=== PATIENT | female | born 1955 | race Caucasian/White ===

== ENCOUNTER 2016-09-15 15:13 | Emergency (ER) | payer OTHER ==
[~2016-09-15] VITALS: Ht 175.3 cm; Wt 90.0 kg
[~2016-09-15 15:13] MED LIST: ASPIRIN325 MG PO; BENGAY VANISHIN57 GM TP; BENZTROPINE MESY1 MG PO; CALCIUM + VITA1 EACH PO; DEBROX15 ML OT; DEPAKOTE250 MG PO; DEPAKOTE500 MG PO; DICYCLOMINE HCL10 MG PO; DILANTIN100 MG PO; FLORINEF ACETA0.1 MG PO; GAS RELIEF 8080 MG PO; HYDROCORTISONE30 G2 TP; IBUPROFEN600 MG PO; LACTAID9000 UNIT PO; LEVOTHYROXINE50 MCG PO; LITHIUM CARBON300 MG PO; LYRICA75 MG PO; Lactaid PO; MAALOX SUSPENS148 ML PO; MIRALAX17 GM PO; MOTRIN600 MG PO; NOSE SPRAY30 ML NS; OLANZAPINE5 M1 PO; Oyst-Cal D, Oscal W/ PO; PERCOCET 5/31 TABLET PO; PROAMATINE10 MG PO; PROLIXIN2.5 MG/ML IM; PROTONIX40 MG PO; SENNA8.6 MG PO; SEROQUEL100 MG PO; SEROQUEL200 MG PO; SIMVASTATIN40 MG PO; SODIUM CHLORIDE1 G1 PO; THERAGRAN1 TABLET PO; TYLENOL EXTRA500 MG PO; TYLENOL REGULA325 MG PO; VENTOLIN HFA18 GM IH; ZYPREXA2.5 MG PO; ZYPREXA7.5 MG PO; [UNRECOGNIZED DRUG - OTHER] IM
[2016-09-15 16:57] LABS: HEMATOCRIT 36.5 % (36.0-46.0); MCH 31.7 PG (29.0-34.0); MCHC 32.3 G/DL (30.0-36.0); MCV 98.1 FL (83-99); MEAN PLAT.VOLUME 11.3 uM^3 (9.5-12.4); PLATELET COUNT 107 K/uL (156-360); RBC DIS.WIDTH-SD 48.2 % (39-53); RED BLOOD COUNT 3.72 M/uL (3.80-5.20); WHITE BLOOD COUNT 5.7 K/uL (4.1-10.2)
[2016-09-15 17:04] LABS: CHLORIDE 104 mEq/L (99-109); POTASSIUM 4.4 mEq/L (3.7-5.4); SODIUM 142 mEq/L (136-147)
[2016-09-15 17:06] LABS: GLUCOSE 103 mg/dL (70-99)
[2016-09-15 17:08] LABS: ANION GAP 6 MEQ/L (2-14)
[2016-09-15 17:10] LABS: GFR ESTIMATE (CALCULATED) > 59 mL/min/
[2016-09-15 17:11] LABS: UREA NITROGEN (BUN) 22 mg/dL (9-23)
[2016-09-15] MEDS ORDERED: PERCOCET 5/31 TABLET PO (18:39)
[2016-09-15 20:09] VITALS: BP 99/71
[2016-09-16] MEDS ORDERED: ADVAIR HFA120 INHALA IH (19:40)
[2016-09-16] MEDS ORDERED: MIDODRINE HCL10 MG PO (19:42)
[2016-09-16] MEDS ORDERED: DEPAKENE250 MG/5 M PO ×2 (19:42→19:43)
[2016-09-16] MEDS ORDERED: ATIVAN0.5 MG PO (19:44)
[2016-09-16] MEDS ORDERED: BENGAY VANISHIN57 GM TP (19:45)
[2016-09-16] MEDS ORDERED: DUONEB 2.5-0.5 M3 ML AEROSOL (19:47)
== END 2016-09-15 20:14 ==
LOC: EME → EDBD 15:13 → EME 20:14
PROVIDERS: Emergency Medicine
DX: S02.612A Fracture of condylar process of left mandible, initial encounter for closed fracture (principal); S01.81XA Laceration without foreign body of other part of head, initial encounter; S00.31XA Abrasion of nose, initial encounter; S80.211A Abrasion, right knee, initial encounter; S80.212A Abrasion, left knee, initial encounter; W01.0XXA Fall on same level from slipping, tripping and stumbling without subsequent striking against object, initial encounter; Y93.01 Activity, walking, marching and hiking; Y92.199 Unspecified place in other specified residential institution as the place of occurrence of the external cause; G89.29 Other chronic pain; Z79.891 Long term (current) use of opiate analgesic; Z79.82 Long term (current) use of aspirin; Z87.891 Personal history of nicotine dependence
CPT/HCPCS: 70450; 70486; 80048; 85027; 99281; 99285

== ENCOUNTER 2016-09-16 16:18 | Emergency (ER) | payer OTHER ==
[~2016-09-16] VITALS: Ht 172.7 cm; Wt 88.2 kg
[2016-09-16 17:28] LABS: HEMATOCRIT 42.3 % (36.0-46.0); MCH 32.1 PG (29.0-34.0); MCHC 32.9 G/DL (30.0-36.0); MCV 97.7 FL (83-99); MEAN PLAT.VOLUME 11.2 uM^3 (9.5-12.4); PLATELET COUNT 101 K/uL (156-360); RBC DIS.WIDTH-CV 14.1 % (11.8-14.6); RBC DIS.WIDTH-SD 48.4 % (39-53); RED BLOOD COUNT 4.33 M/uL (3.80-5.20)
[2016-09-16 17:35] LABS: CHLORIDE 101 mEq/L (99-109); SODIUM 141 mEq/L (136-147)
[2016-09-16 17:37] LABS: GLUCOSE 126 mg/dL (70-99)
[2016-09-16 17:38] LABS: ANION GAP 10 MEQ/L (2-14)
[2016-09-16 17:41] LABS: GFR ESTIMATE (CALCULATED) > 59 mL/min/
[2016-09-16 17:42] LABS: UREA NITROGEN (BUN) 22 mg/dL (9-23)
[2016-09-16 18:47] LABS: EOSINOPHIL (%) 0.1 % (0-5); IMMATURE GRANULOCYTE (%) 0.3 % (0.0-0.7); IMMATURE GRANULOCYTE COUNT 0.3 K/uL; LYMPHOCYTE COUNT 0.6 K/uL (1.0-2.8); MONOCYTE (%) 12.5 % (3-12); MONOCYTE COUNT 1.5 K/uL (0-0.8); NEUTROPHIL (%) 82.2 % (45-76); NEUTROPHIL COUNT 9.8 K/uL (1.8-6.4); TOTAL BILIRUBIN 0.7 mg/dL (0.0-1.0)
[2016-09-16 18:48] LABS: ALKALINE PHOSPHATASE 65 IU/L (3-129)
[2016-09-16 18:50] LABS: DIRECT BILIRUBIN 0.2 mg/dL (0.0-0.3)
[2016-09-16] MEDS ORDERED: ADVAIR HFA120 INHALA IH (19:40)
[2016-09-16] MEDS ORDERED: DEPAKENE250 MG/5 M PO ×2 (19:42→19:43)
[2016-09-16] MEDS ORDERED: MIDODRINE HCL10 MG PO (19:42)
[2016-09-16] MEDS ORDERED: ATIVAN0.5 MG PO (19:44)
[2016-09-16] MEDS ORDERED: BENGAY VANISHIN57 GM TP (19:45)
[2016-09-16] MEDS ORDERED: DUONEB 2.5-0.5 M3 ML AEROSOL (19:47)
[2016-09-16 20:28] LABS: BILIRUBIN NEGATIVE; BLOOD NEGATIVE; COLOR YELLOW ((YELLOW)); GLUCOSE (STRIP) NEGATIVE; KETONES NEGATIVE; LEUKOCYTES NEGATIVE; NITRITE NEGATIVE; PROTEIN (STRIP) NEGATIVE; SPECIFIC GRAVITY 1.019 (1.000-1.030); UROBILINOGEN 0.2 MG/DL (0.2-1.0)
[2016-09-16 20:32] LABS: ADD MIUA? NO; UCUL ADDED? NO
[2016-09-16 21:12] LABS: INFLUENZA A VIRAL ANTIGEN NEGATIVE; INFLUENZA B VIRAL ANTIGEN NEGATIVE
[2016-09-17 04:30] VITALS: BP 125/78
== END 2016-09-17 04:35 | disposition short-term general hospital (02) ==
LOC: EME → EDBD 16:18 → EME 16:18 → EDOF 19:30 → EME 19:30 → EDOF 20:45
PROVIDERS: Emergency Medicine
PROC: 06HM33Z Insertion of Infusion Device into Right Femoral Vein, Percutaneous Approach (ICD-10-PCS; principal; 2016-09-17)
PROC: B54BZZA Ultrasonography of Right Lower Extremity Veins, Guidance (ICD-10-PCS; 2016-09-17)
DX: J18.9 Pneumonia, unspecified organism (principal); A41.9 Sepsis, unspecified organism; I95.9 Hypotension, unspecified; S02.609D Fracture of mandible, unspecified, subsequent encounter for fracture with routine healing; W19.XXXD Unspecified fall, subsequent encounter; F25.9 Schizoaffective disorder, unspecified; F79 Unspecified intellectual disabilities; R00.0 Tachycardia, unspecified; J44.9 Chronic obstructive pulmonary disease, unspecified; Z79.82 Long term (current) use of aspirin; Z87.891 Personal history of nicotine dependence
CPT/HCPCS: 70450; 71020; 80048; 80076; 81003; 83605; 85025; 85027; 87040; 87502; 93005; 94760; 94799; 99202; 99281; 99285; J0456; J0692; J1650; J1720; J2310; J7030; J7050

== ENCOUNTER 2017-02-11 18:00 | Emergency (ER) | payer OTHER ==
[~2017-02-11] VITALS: Ht 160 cm; Wt 88.9 kg
[~2017-02-11 18:00] MED LIST changes: +ADVAIR HFA120 INHALA IH; +ATIVAN0.5 MG PO; +DEPAKENE250 MG/5 M PO; +DUONEB 2.5-0.5 M3 ML AEROSOL; +MIDODRINE HCL10 MG PO
[2017-02-11 19:39] LABS: HEMATOCRIT 35.7 % (36.0-46.0); MCH 31.6 PG (29.0-34.0); MCHC 31.9 G/DL (30.0-36.0); MCV 98.9 FL (83-99); MEAN PLAT.VOLUME 11.8 uM^3 (9.5-12.4); PLATELET COUNT 108 K/uL (156-360); RBC DIS.WIDTH-CV 14.5 % (11.8-14.6); RBC DIS.WIDTH-SD 52.8 % (39-53); RED BLOOD COUNT 3.61 M/uL (3.80-5.20); WHITE BLOOD COUNT 4.7 K/uL (4.1-10.2)
[2017-02-11 19:47] LABS: CHLORIDE 103 mEq/L (99-109); POTASSIUM 3.8 mEq/L (3.7-5.4); SODIUM 143 mEq/L (136-147)
[2017-02-11 19:49] LABS: GLUCOSE 84 mg/dL (70-99)
[2017-02-11 19:50] LABS: ANION GAP 9 MEQ/L (2-14)
[2017-02-11 19:51] LABS: TOTAL BILIRUBIN 0.6 mg/dL (0.0-1.0)
[2017-02-11 19:53] LABS: ALKALINE PHOSPHATASE 55 IU/L (3-129); GFR ESTIMATE (CALCULATED) > 59 mL/min/
[2017-02-11 19:54] LABS: UREA NITROGEN (BUN) 20 mg/dL (9-23)
[2017-02-11 21:43] VITALS: BP 110/75
== END 2017-02-11 22:26 | disposition home or self-care (01) ==
LOC: EME 18:00
PROVIDERS: Nurse Practitioner Family
DX: S32.009A Unspecified fracture of unspecified lumbar vertebra, initial encounter for closed fracture (principal); S30.1XXA Contusion of abdominal wall, initial encounter; W01.198A Fall on same level from slipping, tripping and stumbling with subsequent striking against other object, initial encounter; R29.6 Repeated falls; J44.9 Chronic obstructive pulmonary disease, unspecified; E78.5 Hyperlipidemia, unspecified; Z87.891 Personal history of nicotine dependence
CPT/HCPCS: 74177; 80053; 81003; 85027; 99281; 99285; J1885; J7040

== ENCOUNTER 2017-08-05 16:14 | Inpatient (IN) | payer OTHER ==
[~2017-08-05] VITALS: Ht 177.8 cm; Wt 91.9 kg
[~2017-08-05 16:14] MED LIST changes: +FLUPHENAZI25 MG/1 ML IM; -PROLIXIN2.5 MG/ML IM
[2017-08-05 18:46] LABS: APPEARANCE CLEAR ((CLEAR)); BILIRUBIN NEGATIVE; BLOOD NEGATIVE; GLUCOSE (STRIP) NEGATIVE; KETONES 20; LEUKOCYTES NEGATIVE; NITRITE NEGATIVE; PROTEIN (STRIP) NEGATIVE; SPECIFIC GRAVITY 1.016 (1.000-1.030); UCUL ADDED? NO
[2017-08-05 18:48] LABS: COLOR DK YELLOW ((YELLOW))
[2017-08-05 19:27] LABS: HEMATOCRIT 37.4 % (36.0-46.0); HEMOGLOBIN 12.7 G/DL (11.9-15.5); MCH 32.4 PG (29.0-34.0); MCV 95.4 FL (83-99); PLATELET COUNT 80 K/uL (156-360); RBC DIS.WIDTH-CV 14.2 % (11.8-14.6); RBC DIS.WIDTH-SD 49.3 % (39-53); RED BLOOD COUNT 3.92 M/uL (3.80-5.20); WHITE BLOOD COUNT 9.2 K/uL (4.1-10.2)
[2017-08-05 19:37] LABS: ALBUMIN 3.4 g/dL (3.2-4.8); CHLORIDE 105 mEq/L (99-109); POTASSIUM 3.5 mEq/L (3.7-5.4); SODIUM 140 mEq/L (136-147)
[2017-08-05 19:39] LABS: GLUCOSE 96 mg/dL (70-99)
[2017-08-05 19:40] LABS: TOTAL PROTEIN 6.9 g/dL (6.4-8.3)
[2017-08-05 19:41] LABS: TOTAL BILIRUBIN 2.1 mg/dL (0.0-1.0)
[2017-08-05 19:43] LABS: ALKALINE PHOSPHATASE 132 IU/L (3-129); CREATININE 0.7 mg/dL (0.6-1.3); GFR ESTIMATE (CALCULATED) > 59 mL/min/
[2017-08-05 19:44] LABS: UREA NITROGEN (BUN) 17 mg/dL (9-23)
[2017-08-05 19:45] LABS: AST (GOT) 108 IU/L (2-34)
[2017-08-05 19:46] LABS: ALT (GPT) 89 IU/L (3-49)
[2017-08-05 20:22] LABS: LIPASE 26 U/L (1.0-51.0)
[2017-08-05 21:33] LABS: MONOSPOT (MONONUCLEOSIS SEROL) NEGATIVE
[2017-08-05 22:18] LABS: APPEARANCE CLEAR/COLORLESS; CSF TUBE NUMBER TUBE #4
[2017-08-05 22:19] LABS: RED CELL COUNT 474 /MM^3 (0-1); WHITE CELL COUNT 1 /MM^3 (0-5)
[2017-08-05 22:26] LABS: CSF PROTEIN 43 mg/dL (15-45)
[2017-08-05 22:31] LABS: GLUCOSE, CSF 64 mg/dL (40-80)
[2017-08-05 22:37] LABS: MONONUCLEAR WBC'S 0 % (50-90)
[2017-08-05 22:38] LABS: CSF EOSINOPHILS 0 % (0-25); POLYNUCLEAR WBC'S 100 % (0-3)
[2017-08-05 22:40] LABS: APPEARANCE (RECHECK) CLOUDY/BLOODY; CSF TUBE NUMBER (RECHECK) TUBE #1; RED CELL COUNT (RECHECK) 6225 /MM^3 (0-1)
[2017-08-05] MEDS ORDERED: TYLENOL REGULA325 MG PO (23:14)
[2017-08-05] MEDS ORDERED: PROVENTIL,2.5 MG/3 M IH (23:14)
[2017-08-05] MEDS ORDERED: GERI-LANTA LIQ355 ML PO (23:15)
[2017-08-05] MEDS ORDERED: ATROVENT 00.5 MG/2.5 IH (23:16)
[2017-08-05] MEDS ORDERED: MINERIN CREME454 GM TP (23:17)
[2017-08-05] MEDS ORDERED: SELSUN BLUE325 ML TP (23:18)
[2017-08-05] MEDS ORDERED: DEPAKENE250 MG/5 M PO ×2 (23:19→23:20)
[2017-08-05] MEDS ORDERED: FEOSOL325 MG PO (23:19)
[2017-08-05] MEDS ORDERED: FLORINEF ACETA0.1 MG PO (23:22)
[2017-08-05] MEDS ORDERED: LO-DOSE ASPIRIN81 M1 PO (23:22)
[2017-08-05] MEDS ORDERED: MIRALAX17 GM PO (23:24)
[2017-08-06 01:21] VITALS: BP 109/69
[2017-08-06 04:37] VITALS: BP 80/45
[2017-08-06 08:00] VITALS: BP 89/49
[2017-08-06 16:00] VITALS: BP 105/64
[2017-08-06 20:20] VITALS: BP 91/47
[2017-08-07] VITALS: BP 90/54
[2017-08-07 04:00] VITALS: BP 102/54
[2017-08-07 07:36] VITALS: BP 110/55
[2017-08-07 11:43] VITALS: BP 106/55
[2017-08-07 20:56] VITALS: BP 104/59
[2017-08-07 21:00] VITALS: BP 125/75
[2017-08-08] VITALS (8 sets, daily range): BP systolic 98–112; BP diastolic 54–75
[2017-08-08 06:49] LABS: ALBUMIN 2.7 G/DL (3.2-4.8); ALKALINE PHOSPHATASE 91 IU/L (3-129); ALT (GPT) 62 IU/L (3-49); AST (GOT) 58 IU/L (2-34); CHLORIDE 108 MEQ/L (99-109); CREATININE 0.7 MG/DL (0.6-1.3); GFR ESTIMATE (CALCULATED) > 59 mL/min/; GLUCOSE 102 mg/dL (70-99); POTASSIUM 3.8 MEQ/L (3.7-5.4); SODIUM 147 MEQ/L (136-147); TOTAL BILIRUBIN 0.6 MG/DL (0.0-1.0); TOTAL PROTEIN 5.5 G/DL (6.4-8.3); UREA NITROGEN (BUN) 17 mg/dL (9-23)
[2017-08-08 06:53] LABS: HEMATOCRIT 35.7 % (36.0-46.0); HEMOGLOBIN 11.2 G/DL (11.9-15.5); MCH 31.6 PG (29.0-34.0); MCHC 31.4 G/DL (30.0-36.0); MCV 100.8 FL (83-99); PLATELET COUNT 78 K/uL (156-360); RBC DIS.WIDTH-CV 14.7 % (11.8-14.6); RBC DIS.WIDTH-SD 55.7 % (39-53); RED BLOOD COUNT 3.54 M/uL (3.80-5.20); WHITE BLOOD COUNT 6.2 K/uL (4.1-10.2)
[2017-08-09 04:00] VITALS: BP 99/55
[2017-08-09 08:16] VITALS: BP 93/52
[2017-08-09 14:09] VITALS: BP 103/58
[2017-08-09 17:03] VITALS: BP 112/61
[2017-08-09 19:53] VITALS: BP 99/56
[2017-08-09 23:52] VITALS: BP 98/62
[2017-08-10 03:45] VITALS: BP 90/58
[2017-08-10 08:00] VITALS: BP 96/60
[2017-08-10 12:38] VITALS: BP 119/72
[2017-08-10 16:00] VITALS: BP 103/68
[2017-08-10 19:58] VITALS: BP 96/52
[2017-08-11] VITALS (7 sets, daily range): BP systolic 88–118; BP diastolic 48–60
[2017-08-12 03:55] VITALS: BP 81/50
[2017-08-12 06:21] LABS: ALBUMIN 2.8 G/DL (3.2-4.8); ALKALINE PHOSPHATASE 79 IU/L (3-129); ALT (GPT) 22 IU/L (3-49); AST (GOT) 17 IU/L (2-34); CHLORIDE 102 MEQ/L (99-109); CREATININE 0.7 MG/DL (0.6-1.3); GFR ESTIMATE (CALCULATED) > 59 mL/min/; GLUCOSE 81 mg/dL (70-99); POTASSIUM 3.7 MEQ/L (3.7-5.4); SODIUM 145 MEQ/L (136-147); TOTAL BILIRUBIN 0.4 MG/DL (0.0-1.0); TOTAL PROTEIN 5.6 G/DL (6.4-8.3); UREA NITROGEN (BUN) 22 mg/dL (9-23)
[2017-08-12 09:19] VITALS: BP 103/67
[2017-08-12 11:23] VITALS: BP 112/64
[2017-08-12 15:04] VITALS: BP 91/53
[2017-08-12 19:54] VITALS: BP 96/54
[2017-08-12 23:54] VITALS: BP 93/52
[2017-08-13 03:51] VITALS: BP 104/60
[2017-08-13 08:33] VITALS: BP 102/65
[2017-08-13 11:46] VITALS: BP 103/66
[2017-08-13 16:26] VITALS: BP 101/65
[2017-08-13 20:45] VITALS: BP 99/55
[2017-08-13 23:31] VITALS: BP 93/58
[2017-08-14 04:02] VITALS: BP 98/56
[2017-08-14 06:42] LABS: BASOPHIL (%) 0.4 % (0-1); EOSINOPHIL (%) 2.3 % (0-5); EOSINOPHIL COUNT 0.1 K/uL (0-0.3); HEMATOCRIT 32.9 % (36.0-46.0); HEMOGLOBIN 10.7 G/DL (11.9-15.5); IMMATURE GRANULOCYTE (%) 0.2 % (0.0-0.7); LYMPHOCYTE COUNT 1.7 K/uL (1.0-2.8); MCH 32.4 PG (29.0-34.0); MCHC 32.5 G/DL (30.0-36.0); MCV 99.7 FL (83-99); MONOCYTE COUNT 0.7 K/uL (0-0.8); NEUTROPHIL (%) 48.1 % (45-76); NEUTROPHIL COUNT 2.3 K/uL (1.8-6.4); RBC DIS.WIDTH-CV 13.8 % (11.8-14.6); RBC DIS.WIDTH-SD 50.5 % (39-53); WHITE BLOOD COUNT 4.9 K/uL (4.1-10.2)
[2017-08-14 06:49] LABS: PLATELET COUNT 158 K/uL (156-360)
[2017-08-14 08:43] VITALS: BP 103/65
[2017-08-14 11:58] VITALS: BP 101/65
[2017-08-14 16:32] VITALS: BP 100/63
[2017-08-14 20:30] VITALS: BP 111/62
[2017-08-15 00:06] VITALS: BP 108/56
[2017-08-15 03:55] VITALS: BP 102/59
[2017-08-15 08:36] VITALS: BP 125/76
[2017-08-15 16:52] VITALS: BP 126/77
[2017-08-15 18:37] VITALS: BP 138/63
[2017-08-16 00:19] VITALS: BP 97/52
[2017-08-16 07:37] VITALS: BP 101/58
[2017-08-16 15:54] VITALS: BP 110/58
[2017-08-16 23:35] VITALS: BP 101/54
[2017-08-17 07:45] VITALS: BP 110/54
[2017-08-17 16:47] VITALS: BP 105/57
== END 2017-08-17 15:00 | DRG 871 ==
LOC: EME 16:14 → 4SOUTH 23:15 → EDOF 23:15 → ENRESERV 23:27 → 4SOUTH 08-06 01:03
PROVIDERS: Family Medicine; Internal Medicine; Physician Assistant
PROC: 009U3ZX Drainage of Spinal Canal, Percutaneous Approach, Diagnostic (ICD-10-PCS; principal; 2017-08-05)
DX: A41.9 Sepsis, unspecified organism (principal); J12.9 Viral pneumonia, unspecified; J44.0 Chronic obstructive pulmonary disease with (acute) lower respiratory infection; F25.9 Schizoaffective disorder, unspecified; I95.89 Other hypotension; M43.6 Torticollis; K83.8 Other specified diseases of biliary tract; E66.9 Obesity, unspecified; Z68.29 Body mass index [BMI] 29.0-29.9, adult; D64.9 Anemia, unspecified; F70 Mild intellectual disabilities; F41.9 Anxiety disorder, unspecified; E78.5 Hyperlipidemia, unspecified; R56.9 Unspecified convulsions; Z85.850 Personal history of malignant neoplasm of thyroid; Z90.49 Acquired absence of other specified parts of digestive tract; Z87.891 Personal history of nicotine dependence; Z79.82 Long term (current) use of aspirin; Z75.1 Person awaiting admission to adequate facility elsewhere
CPT/HCPCS: 70450; 71045; 71046; 76705; 80053; 81003; 82945; 83605; 83690; 84157; 85025; 85027; 85027 GA; 86308; 87040; 87070; 87205; 87502; 89051; 94640; 94640 76; 94799; 97530 GP; 99202; 99281; 99285; J0456; J0696; J1650; J1885; J7030